=== PATIENT | female | born 1985 | race Caucasian/White ===

== ENCOUNTER 2020-03-01 00:57 | Emergency (ER) | payer OTHER ==
[~2020-03-01 00:57] MED LIST: CLOTRIMAZOLE10 ML EARRT; IBUPROFEN600 MG PO
[2020-03-01] MEDS ORDERED: IBUPROFEN800 MG PO (01:38)
[2020-03-01] MEDS ORDERED: CLEOCIN HCL150 MG PO (01:38)
[2020-03-01] MEDS ORDERED: ACIDOPHILUS 17175 MG PO (01:38)
== END 2020-03-01 02:05 | disposition home or self-care (01) ==
LOC: ER1 00:57
DX: L02.411 Cutaneous abscess of right axilla (principal); Z88.0 Allergy status to penicillin; Z88.1 Allergy status to other antibiotic agents; Z88.2 Allergy status to sulfonamides; Z98.890 Other specified postprocedural states
CPT/HCPCS: 10060; 99282

== ENCOUNTER 2020-09-21 01:39 | Emergency (ER) | payer OTHER ==
[~2020-09-21 01:39] MED LIST changes: +ACIDOPHILUS 17175 MG PO; +CLEOCIN HCL150 MG PO; +IBUPROFEN800 MG PO
[2020-09-21] MEDS ORDERED: LODINE CAP 300300 MG PO (03:01)
== END 2020-09-21 03:10 | disposition home or self-care (01) ==
LOC: ER1 01:39
DX: M79.671 Pain in right foot (principal); Z90.710 Acquired absence of both cervix and uterus; Z88.0 Allergy status to penicillin; Z88.2 Allergy status to sulfonamides; Z79.01 Long term (current) use of anticoagulants
CPT/HCPCS: 73630; 99283

== ENCOUNTER → 2020-11-11 | Outpatient (CLI) | payer OTHER ==
[~2020-11-11] MED LIST changes: +LODINE CAP 300300 MG PO
== END ==
LOC: KOH-I 10:54
DX: S92.351A Displaced fracture of fifth metatarsal bone, right foot, initial encounter for closed fracture (principal)
CPT/HCPCS: 73630

== ENCOUNTER → 2020-11-28 | Outpatient (CLI) | payer OTHER | LOC: EMI 11-21 10:00 | DX: G43.709 Chronic migraine without aura, not intractable, without status migrainosus (principal) | CPT/HCPCS: 70553; A9577 ==

== ENCOUNTER → 2020-12-19 | Outpatient (CLI) | payer OTHER | LOC: KOH-I 15:32 | DX: S92.351A Displaced fracture of fifth metatarsal bone, right foot, initial encounter for closed fracture (principal) | CPT/HCPCS: 73630 ==

== ENCOUNTER 2021-02-02 19:01 | Emergency (ER) | payer OTHER ==
[2021-02-02 21:06] LABS: BORDETELLA PARAPERTUSSIS Not Detected (Not Detectd); BORDETELLA PERTUSSIS Not Detected (Not Detectd); CHLAMYDIA PNEUMONIAE Not Detected (Not Detectd); CORONAVIRUS HKU1 Not Detected (Not Detectd); CORONAVIRUS NL63 Not Detected (Not Detectd); CORONAVIRUS OC43 Not Detected (Not Detectd); CORONOAVIRUS 229E Not Detected (Not Detectd); HUMAN RHINOVIRUS/ENTEROVIRUS Not Detected (Not Detectd); INFLUENZA A Not Detected (Not Detectd); INFLUENZA B Not Detected (Not Detectd); MYCOPLASMA PNEUMONIAE Not Detected (Not Detectd); PARAINFLUENZA VIRUS 1 Not Detected (Not Detectd); PARAINFLUENZA VIRUS 2 Not Detected (Not Detectd); PARAINFLUENZA VIRUS 3 Not Detected (Not Detectd); PARAINFLUENZA VIRUS 4 Not Detected (Not Detectd); RESPIRATORY SYNCYTIAL VIRUS Not Detected (Not Detectd)
[2021-02-02 21:07] LABS: HEMOGLOBIN 13.3 gm/dl (12.3-15.3); RED BLOOD COUNT 4.38 M/UL (4.00-5.10); WHITE BLOOD COUNT 6.4 K/UL (4.5-11.0)
[2021-02-02 21:32] LABS: BUN/CREATININE RATIO 14 (0-10)
[2021-02-02 22:14] LABS: HUMAN METAPNEUMOVIRUS DETECTED (Not Detectd); SARS-CoV-2 NOT DETECTED (Not Detectd)
[2021-02-02] MEDS ORDERED: PROAIR DIGIHAL90 MCG INH (22:34)
== END 2021-02-02 22:41 | disposition home or self-care (01) ==
LOC: ER1 19:01
PROVIDERS: Nurse Practitioner
DX: J06.9 Acute upper respiratory infection, unspecified (principal); J12.3 Human metapneumovirus pneumonia; Z88.2 Allergy status to sulfonamides; Z88.0 Allergy status to penicillin; Z20.822 Contact with and (suspected) exposure to COVID-19; Z86.711 Personal history of pulmonary embolism
CPT/HCPCS: 36600; 71045; 80048; 82550; 82553; 82803; 83874; 84484; 85025; 85379; 87633; 93005; 99285

== ENCOUNTER 2021-02-05 15:19 | Emergency (ER) | payer OTHER ==
[~2021-02-05 15:19] MED LIST changes: +PROAIR DIGIHAL90 MCG INH
[2021-02-05 17:01] LABS: HEMOGLOBIN 13.2 gm/dl (12.3-15.3); RED BLOOD COUNT 4.4 M/UL (4.00-5.10)
[2021-02-05 17:31] LABS: BUN/CREATININE RATIO 11 (0-10)
[2021-02-05] MEDS ORDERED: IBUPROFEN800 MG PO (21:19)
[2021-02-05] MEDS ORDERED: CEFUROXIME500 MG PO (21:19)
[2021-02-05] MEDS ORDERED: BENZONATATE200 MG PO (21:20)
== END 2021-02-05 21:56 | disposition home or self-care (01) ==
LOC: ER1 15:19
PROVIDERS: Physician Assistant
DX: J06.9 Acute upper respiratory infection, unspecified (principal); J12.3 Human metapneumovirus pneumonia; D64.9 Anemia, unspecified; Z20.822 Contact with and (suspected) exposure to COVID-19
CPT/HCPCS: 36600; 80048; 82550; 82553; 82803; 84484; 85025; 87081; 87880; 93005; 94664; 94760; 96374; 99285; J0696; Q9967; U0002

== ENCOUNTER → 2021-03-04 | Outpatient (CLI) | payer OTHER ==
[~2021-03-04] MED LIST changes: +BENZONATATE200 MG PO; +CEFUROXIME500 MG PO
== END ==
LOC: KOH-I 13:27
DX: S92.351D Displaced fracture of fifth metatarsal bone, right foot, subsequent encounter for fracture with routine healing (principal)
CPT/HCPCS: 73630

== ENCOUNTER 2021-03-08 10:01 | Emergency (ER) | payer OTHER ==
[2021-03-08 11:00] LABS: HEMOGLOBIN 12.1 gm/dl (12.3-15.3); RED BLOOD COUNT 4.05 M/UL (4.00-5.10); WHITE BLOOD COUNT 4.8 K/UL (4.5-11.0)
[2021-03-08 11:34] LABS: BUN/CREATININE RATIO 18 (0-10)
[2021-03-08] MEDS ORDERED: ZOFRAN 4 MG TAB4 MG PO (12:43)
== END 2021-03-08 13:00 | disposition home or self-care (01) ==
LOC: ER1 10:01
PROVIDERS: Physician Assistant
DX: U07.1 COVID-19 (principal); E86.0 Dehydration; Z86.711 Personal history of pulmonary embolism; Z79.01 Long term (current) use of anticoagulants; Z88.0 Allergy status to penicillin; Z88.2 Allergy status to sulfonamides
CPT/HCPCS: 0240U; 71045; 80053; 82550; 82553; 83605; 83874; 84484; 85025; 85379; 87040; 93005; 99284